=== PATIENT | female | born 1995 | race Two or more races ===

== ENCOUNTER 2022-02-21 16:41 | Emergency (ER) | payer BC, OTHER ==
[~2022-02-21] VITALS: Ht 170.2 cm; Wt 58.0 kg
[2022-02-21 16:58] VITALS: BP 143/90
[2022-02-21 17:10] LABS: Basophils # (auto) 0.1 10 ^3/uL (0-0.2); Basophils % (auto) 0.8 % (0.0-2.0); Eosinophils # (auto) 0.1 10 ^3/uL (0-0.8); Eosinophils % (auto) 0.6 % (0.0-7.0); Hematocrit 39.9 % (36.0-46.0); Hemoglobin 13.7 g/dL (12.2-16.2); Lymphocytes # (auto) 1.5 10 ^3/uL (0.4-5.4); Lymphocytes % (auto) 14.6 % (10.0-50.0); Mean Corpuscular Hemoglobin 29.4 pg (28.0-32.0); Mean Corpuscular Hgb Conc. 34.3 g/dL (32.0-36.0); Mean Corpuscular Volume 85.7 fL (80.0-100.0); Monocytes % (auto) 10.1 % (0.0-12.0); Neutrophils # (auto) 7.5 10 ^3/uL (1.6-8.6); Neutrophils % (auto) 73.9 % (37.0-80.0); Red Blood Cells 4.66 10^6/uL (4.0-5.20); Red Cell Distribution Width 13.5 % (11.8-14.3); White Blood Cell 10.1 10^3/uL (4.4-10.8)
[2022-02-21 17:27] LABS: Urine Bacteria FEW /hpf (None Seen); Urine Blood TRACE /uL (Negative); Urine Mucus FEW (None Seen); Urine Specific Gravity 1.009 (1.001-1.035); Urine WBC 39 /hpf (0 - 5)
[2022-02-21 17:40] LABS: Albumin 4.1 g/dL (3.4-5.0); Calcium 9.2 mg/dL (8.5-10.1); Potassium 3.5 mmol/L (3.5-5.1)
[2022-02-21 17:42] LABS: BUN/Creatinine Ratio 9.6
[2022-02-21 17:45] LABS: Bilirubin, Total 0.7 mg/dL (0.2-1.0); Total Protein 7.6 g/dL (6.4-8.2)
[2022-02-21] MEDS ORDERED: METR500T PO (19:24)
[2022-02-21] MEDS ORDERED: CEPH-510 PO (19:24)
[2022-02-21] MEDS ORDERED: IBU600T PO (19:24)
[2022-02-21] MEDS ORDERED: cefTRIAXone SOD 1,000 MG VL IM ONE (19:30)
[2022-02-21] MEDS ORDERED: metroNIDAZOLE 500 MG TAB PO ONE (19:30)
[2022-02-21] MEDS ORDERED: cefTRIAXone 1GM/50ML D5W 50 ML IV ONE (21:30)
[2022-02-21] MEDS ORDERED: metroNIDAZOLE 500MG/100ML 100 ML IV ONE (21:30)
[2022-02-21] MEDS ORDERED: ONDANSETRON HCL 4 MG/2 ML VIAL IV ONE (21:30)
[2022-02-21] MEDS ORDERED: SODIUM CHLORIDE 0.9% 1,000 ML IV ONE ×2 (21:30)
== END 2022-02-21 22:55 | disposition left against medical advice (07) ==
LOC: ER 16:41
DX: K57.32 Diverticulitis of large intestine without perforation or abscess without bleeding (principal); N39.0 Urinary tract infection, site not specified; Z79.1 Long term (current) use of non-steroidal anti-inflammatories (NSAID); Z79.899 Other long term (current) drug therapy
CPT/HCPCS: 36415; 74176; 80053; 81001; 84702; 85025; 96372; 99284; J0696